=== PATIENT | male | born 1980 | race Two or more races ===

== ENCOUNTER 2019-10-19 13:16 | Day surgery (SDC) | payer OTHER ==
[2019-10-19] VITALS (11 sets, daily range): BP systolic 120–150; BP diastolic 78–107
[~2019-10-19] VITALS: Ht 182.9 cm; Wt 131.5 kg
--- NOTE | 2019-10-19 07:37 | Pre-Procedure Note/Attestation ---
Pre-Procedure Note/Attestation Complete Prior to Procedure Planned Procedure: right Procedure Narrative: shoulder arthroscopy, labral repair, sad Indications for Procedure Pre-Operative Diagnosis: right shoulder labral tear, impingement Attestation I attest that I discussed the nature of the procedure; its benefits; risks and complications; and alternatives (and the risks and benefits of such alternatives ), prior to the procedure, with the patient (or the patient's legal motor vehicle representative). I attest that, if there was a reasonable possibility of needing a blood transfusion, the patient (or the patient's legal motor vehicle representative) was given the [facility] standardized written summary, pursuant to the Denys Kevin Blood Safety Act ([place] Health and Safety Code # 1645, as amended). I attest that I re-evaluated the patient just prior to the surgery and that there has been no change in the patient's H&P, except as documented below: Nicho Oshea MD Oct 19, 2019 07:37
--- NOTE | 2019-10-19 07:37 | Operative Note - PDOC ---
Operative Note Operative Note Pre-op Diagnosis: right shoulder labral tear, impingement Procedure: see op report Post-op Diagnosis: same as pre-op plus Operative Findings: consistent w/pre-op dx studies Anesthesia: regional Specimen: none Complications: none Condition: stable Estimated Blood Loss: none Implant(s) used?: No Nicho Oshea MD Oct 19, 2019 07:37
[~2019-10-19 13:16] MED LIST: D5 1/2NS 1,000 ML IV SCH; HYDROcodone/Acetamin 5/325 tab ORAL PRN; HYDROmorphone 1mg/ml Carpuject SUBQ PRN; NICOTINE PATCH1 EAC5 TD; Tylenol #3 tab (300mg/30mg) ORAL PRN; ceFAZolin 1gm IVPB IVPB ONE; celeBREX 200mg Cap **SURGERY PATIENTS ONLY ORAL ONE; oxyCONTIN 20mg tab ORAL ONE
[2019-10-19] MEDS ORDERED: oxyCONTIN 20mg tab ORAL ONE (13:41)
[2019-10-19] MEDS ORDERED: celeBREX 200mg Cap **SURGERY PATIENTS ONLY ORAL ONE (13:41)
[2019-10-19] MEDS ORDERED: Sterile Water Irrig 1000ml IRRIG ONE (14:00)
[2019-10-19] MEDS ORDERED: LR 1000ml ONE (14:00)
[2019-10-19] MEDS ORDERED: EPINEPHrine 1mg/1ml Amp ONE (14:04)
[2019-10-19] MEDS ORDERED: Duramorph PF 5mg/10ml amp ONE (14:05)
[2019-10-19] MEDS ORDERED: Kenalog-40 1ml Vial ONE (14:05)
[2019-10-19] MEDS ORDERED: LR 1000ml 1,000 ML IVLG SCH (14:05)
[2019-10-19] MEDS ORDERED: Atropine Sulfate 0.4mg/ml inj IVP PRN (14:15)
[2019-10-19] MEDS ORDERED: Metoclopramide 10mg/2ml Inj IVP PRN (14:15)
[2019-10-19] MEDS ORDERED: Meperidine 25mg/0.5ml Inj (FOR RIGORS ONLY) IV PRN (14:15)
[2019-10-19] MEDS ORDERED: HYDROcodone/Acetamin 5/325 tab ORAL PRN (14:15)
[2019-10-19] MEDS ORDERED: Midazolam 2mg/2ml Inj IVP PRN (14:15)
[2019-10-19] MEDS ORDERED: Ketorolac 30mg Inj IV PRN ×2 (14:15)
[2019-10-19] MEDS ORDERED: fentaNYL 100 mcg/2 mL IV PRN (14:15)
[2019-10-19] MEDS ORDERED: Labetalol 5mg/ml 20ml vial IV PRN (14:15)
[2019-10-19] MEDS ORDERED: HYDROcodone/Acetamin 7.5/325 tab ORAL PRN (14:15)
[2019-10-19] MEDS ORDERED: LORazepam Inj 2mg/ml 1ml IV PRN (14:15)
[2019-10-19] MEDS ORDERED: Hydromorphone 0.5mg/0.5ml inj IVP PRN (14:15)
[2019-10-19] MEDS ORDERED: oxyCODONE HCL/Acetaminophen 5/325mg ORAL PRN (14:15)
[2019-10-19] MEDS ORDERED: DiphenhydrAMINE 50mg/ml Inj IVP PRN (14:15)
[2019-10-19] MEDS ORDERED: Dexamethasone 4mg/ml vial ONE (14:17)
[2019-10-19] MEDS ORDERED: Propofol 200mg/20ml IV ONE (14:17)
[2019-10-19] MEDS ORDERED: Sodium Chloride 10ml vial INJ ONE (14:17)
[2019-10-19] MEDS ORDERED: Lidocaine 1% MPF 10mg/ml 5ml ONE (14:17)
[2019-10-19] MEDS ORDERED: Ropivacaine 5mg/ml Vial 20ml INJ ONE (14:18)
[2019-10-19] MEDS ORDERED: NS Irrig 4000ml IRRIG ONE (15:02)
[2019-10-19] MEDS ORDERED: fentaNYL 100 mcg/2 mL IV ONE (15:02)
--- NOTE | 2019-10-19 15:13 | Anethesia Preoperative Eval ---
Anesthesia Pre-op PMH/ROS General Date of Evaluation: Oct 19, 2019 Time of Evaluation: 14:09 Anesthesiologist: Cayden ASA Score: ASA 3 Mallampati Score Class I : Soft palate, uvula, fauces, pillars visible Class II: Soft palate, uvula, fauces visible Class III: Soft palate, base of uvula visible Class IV: Only hard plate visible Mallampati Classification: Class III Surgeon: Dayo Diagnosis: R Shoulder Pain Surgical Procedure: R Shoulder Arthroscopy Anesthesia History: none Social History: drug use - Opioids Family History: no anesthesia problems Allergies: Coded Allergies: No Known Allergies (Unverified , 10/19/19) Medications: see eMAR Patient NPO?: Yes Past Medical History Cardiovascular: Reports: HTN Musculoskeletal/Integumentary: Reports: other - Chrnic Pain Other: obesity - Morbid BMI 40 Anesthesia Pre-op Phys. Exam Physician Exam Last Vital Signs Date Time Temp Pulse Resp B/P (MAP) Pulse Ox O2 Delivery O2 Flow Rate FiO2 10/19/19 14:05 Room Air 10/19/19 13:46 98.6 89 18 120/80 98 Constitutional: NAD Neurologic: CN 2-12 intact Cardiovascular: RRR Respiratory: CTA Gastrointestinal: S/NT/ND Airway Exam Mallampati Score: Class III MO: limited ROM: limited Teeth: intact Anesthesia Pre-op A/P Risk Assessment & Plan Assessment: ASA 3 Plan: GA, SED, R Supraclavicular Pain Status Change Before Surgery: No Pre-Antibiotics Dru Grams Ancef IV Given Within 1 Hr of Incision: Yes Time Given: 14:41 Hilario Rodarte MD Oct 19, 2019 15:13
--- NOTE | 2019-10-19 15:15 | 48 Hour Post Anesthesia Eval ---
Post Anesthesia Evaluation Procedure: R Shoulder Arthroscopy Date of Evaluation: Oct 19, 2019 Time of Evaluation: 18:12 Blood Pressure Systolic: 148 0: 98 Pulse Rate: 109 Respiratory Rate: 18 Temperature (Fahrenheit): 98 O2 Sat by Pulse Oximetry: 99 Airway: patent Nausea: No Vomiting: No Pain Intensity: 2 Hydration Status: adequate Cardiopulmonary Status: Stable Mental Status/LOC: patient returned to baseline Follow-up Care/Observations: 0 Post-Anesthesia Complications: 0 Follow-up care needed: ready to discharge Hilario Rodarte MD Oct 19, 2019 15:15
--- NOTE | 2019-10-19 15:15 | Immediate Post-Op Evaluation ---
Immediate Post-Op Evalulation Immediate Post-Op Evalulation Procedure: R Shoulder Arthroscopy Date of Evaluation: Oct 19, 2019 Time of Evaluation: 16:07 IV Fluids: 800 LR Blood Products: 0 Estimated Blood Loss: 20 Urinary Output: 0 Blood Pressure Systolic: 150 Blood Pressure Diastolic: 107 Pulse Rate: 104 Respiratory Rate: 16 O2 Sat by Pulse Oximetry: 100 Temperature (Fahrenheit): 97.8 Pain Score (1-10): 2 Nausea: No Vomiting: No Complications 0 Patient Status: awake, reacts, patent, none Hydration Status: adequate Dru Grams Ancef IV Given Within 1 Hr of Incision: Yes Time Given: 14:41 Hilario Rodarte MD Oct 19, 2019 15:15
--- NOTE | 2019-10-19 21:15 | Operative Note - Dictated ---
DATE OF OPERATION: 10/19/2019 PREOPERATIVE DIAGNOSES: 1. Right shoulder internal derangement secondary to labral tear. 2. Impingement syndrome/bursitis. POSTOPERATIVE DIAGNOSES: 1. Grade 2 superior labral tear. 2. Articular-sided partial rotator cuff tear. 3. Impingement syndrome/bursitis. PROCEDURE: 1. Right shoulder diagnostic arthroscopy and extensive intraarticular debridement. 2. Right shoulder subacromial decompression bursectomy. SURGEON: Nicho Oshea M.D. ANESTHESIA: Interscalene with general. INDICATION FOR PROCEDURE: The patient is a pleasant gentleman, who has had progressive bilateral shoulder pain. He underwent surgery for the left shoulder. Subsequently elected to undergo right shoulder arthroscopy, possible labral debridement with concurrent subacromial decompression bursectomy. Risks, limitations, expectations, and complications of procedure were discussed in detail. All questions were addressed. DESCRIPTION OF PROCEDURE: After informed consent obtained, the patient was brought to the operating room. The patient was placed under right shoulder interscalene general anesthesia. The right shoulder was prepped and draped in a sterile manner. A posterolateral stab incision was then made. Trocar was introduced in the glenohumeral joint. There was no significant chondral damage. The anterior labrum was probed, noted to be intact along with the subscapularis. There was fraying along the superior labrum. There were adhesions along the distal aspect of the long head of the biceps tendon labrum making it somewhat confluent. It was difficult to assess the tissue interval between the biceps tendon and the capsule. However, there was tenosynovitis or tendinosis along the distal aspect of the biceps tendon. It was a partial articular-sided rotator cuff tear. A shaver was then placed in the rotator interval. Debridement of the rotator cuff was performed. Once that was done, the shoulder was taken through range of motion. There was some fraying along the superior labrum, which was debrided. There was negative peel-back sign given the anatomic variant of the insertion of the biceps tendon and the lack of any tendinosis along the bicipital tuberosity area, bicipital groove, it was felt that full repair was not required. At this point, the camera was repositioned in the subacromial space. There was hypertrophic bursal tissue. The undersurface of the acromion was identified. Acromioplasty was started from lateral to medial and completed posterior to anterior. Once that was done, the complete bursectomy was performed. Once that was done, the instruments were removed. Portal sites were closed with 3-0 Monocryl sutures. ESTIMATED BLOOD LOSS: None. COMPLICATIONS: None. SPECIMENS: None. IMPLANTS: None. Nicho Oshea M.D. DR: JULIA JOB#: [id number] CC: SHE
== END 2019-10-19 17:55 | disposition home or self-care (01) ==
LOC: SUR 13:16
DX: S43.431A Superior glenoid labrum lesion of right shoulder, initial encounter (principal); M75.41 Impingement syndrome of right shoulder; M75.111 Incomplete rotator cuff tear or rupture of right shoulder, not specified as traumatic; M77.9 Enthesopathy, unspecified; X58.XXXA Exposure to other specified factors, initial encounter; Y92.9 Unspecified place or not applicable
CPT/HCPCS: 29823; J0171; J0690; J1100; J1885; J2250; J2405; J2704; J2795; J3010; J3301; J7120; 94003; 94150